=== PATIENT | male | born 1975 | race Caucasian/White ===

== ENCOUNTER 2016-12-05 18:22 | Emergency (ER) | payer OTHER, MEDICARE | END 2016-12-05 21:15 | disposition home or self-care (01) | LOC: ER1 18:22 | DX: S16.1XXA Strain of muscle, fascia and tendon at neck level, initial encounter (principal); S50.12XA Contusion of left forearm, initial encounter; S50.811A Abrasion of right forearm, initial encounter; Z79.02 Long term (current) use of antithrombotics/antiplatelets; V43.52XA Car driver injured in collision with other type car in traffic accident, initial encounter; Y93.89 Activity, other specified; Y92.410 Unspecified street and highway as the place of occurrence of the external cause | CPT/HCPCS: 71020; 72125; 73090; 99284 ==